=== PATIENT | female | born 1960 | race African-American/Black ===

== ENCOUNTER 2017-09-11 09:59 | Emergency (ER) | payer MEDICARE, MEDICAID ==
[~2017-09-11] VITALS: Ht 160 cm; Wt 77.0 kg
[~2017-09-11 09:59] MED LIST: AMLO10TA80 PO; LEVVL SUBCUT; Meclizine Hcl PO; TOPI200C6 PO
[2017-09-11] MEDS ORDERED: SODIUM CHLORIDE 0.9% 1,000 ML IV ONE (10:26)
[2017-09-11 11:47] LABS: CLARITY URINE CLEAR (CLEAR); COLOR URINE YELLOW (YELLOW); KETONES URINE NEGATIVE (NEGATIVE); LEUKOCYTE ESTERASE URINE NEGATIVE (NEGATIVE); NITRITE URINE NEGATIVE (NEGATIVE); OCCULT BLOOD URINE NEGATIVE (NEGATIVE); PH URINE 5.5 (4.5-8.0); PROTEIN URINE NEGATIVE (NEGATIVE); SPECIFIC GRAVITY URINE 1.015 (1.005-1.030); UROBILINOGEN URINE 0.2 E.U./dL (0.2-1.0)
[2017-09-11 12:08] LABS: *AMPHETAMINES SCREEN URINE NEGATIVE (NEGATIVE); *BARBITURATES SCREEN URINE NEGATIVE (NEGATIVE); *BENZODIAZEPINES SCREEN URINE NEGATIVE (NEGATIVE); *COCAINE SCREEN URINE NEGATIVE (NEGATIVE); METHADONE URINE SCREEN NEGATIVE (NEGATIVE); OPIATES URINE SCREEN NEGATIVE (NEGATIVE)
[2017-09-11 12:09] LABS: CANNABINOID URINE SCREEN NEGATIVE (NEGATIVE); PHENCYCLIDINE URINE SCREEN NEGATIVE (NEGATIVE)
[2017-09-11 14:26] VITALS: BP 109/78
[2017-09-11] MEDS ORDERED: DIPHENHYDRAMINE 25MG CAPSULE PO ONE (14:30)
[2017-09-11 14:58] LABS: BASOPHILS % 1.2 % (0.0-2.0); HEMATOCRIT. 40.5 % (36.0-48.0); HEMOGLOBIN. 13.9 g/dL (12.0-16.0); MEAN CORPUSCULAR HEMOGLOBIN 31.3 pg (28.0-32.0); MEAN CORPUSCULAR VOLUME 91.1 fL (81.0-99.0); MEAN PLATELET VOLUME 9.1 fl (7.4-10.4); MONOCYTES % 12.5 % (2.0-8.0); NEUTROPHILS % 47.3 % (40.0-76.0); PLATELET 181 x1000/uL (130-400); RED BLOOD CELL COUNT 4.44 mill/uL (4.2-5.4); RED CELL DISTRIBUTION WIDTH 13.7 % (11.6-14.6)
[2017-09-11 15:11] LABS: CHLORIDE 112 mEq/L (98-107)
== END 2017-09-11 16:16 | disposition home or self-care (01) ==
LOC: ER 11:26
DX: L30.9 Dermatitis, unspecified (principal); L50.9 Urticaria, unspecified; I10 Essential (primary) hypertension; E11.9 Type 2 diabetes mellitus without complications; E78.00 Pure hypercholesterolemia, unspecified; Z88.5 Allergy status to narcotic agent; Z90.710 Acquired absence of both cervix and uterus; Z85.3 Personal history of malignant neoplasm of breast
CPT/HCPCS: 36415; 80053; 80305; 81003; 85025; 93005; 96360; 99285; J7030; Q0163

== ENCOUNTER 2018-09-12 06:56 | Inpatient (IN) | payer MEDICARE, MEDICAID ==
[~2018-09-12] VITALS: Ht 154.9 cm; Wt 81.8 kg
[2018-09-12 07:35] LABS: CHLORIDE 111 mEq/L (98-107)
[2018-09-12 07:38] LABS: BASOPHILS % 0.6 % (0.0-2.0); EOSINOPHILS % 0.5 % (0.0-5.0); HEMATOCRIT. 40.4 % (36.0-48.0); HEMOGLOBIN. 13.9 g/dL (12.0-16.0); MEAN CORPUSCULAR HEMOGLOBIN 31.1 pg (28.0-32.0); MEAN CORPUSCULAR VOLUME 90.2 fL (81.0-99.0); MEAN PLATELET VOLUME 8.7 fl (7.4-10.4); MONOCYTES % 6.8 % (2.0-8.0); NEUTROPHILS % 66.1 % (40.0-76.0); PLATELET 221 x1000/uL (130-400); RED BLOOD CELL COUNT 4.48 mill/uL (4.2-5.4); RED CELL DISTRIBUTION WIDTH 13.3 % (11.6-14.6)
[2018-09-12] MEDS ORDERED: SODIUM CHLORIDE 0.9% 1,000 ML IV ONE (08:44)
[2018-09-12] MEDS ORDERED: IOHEXOL-350 100 ML BOTTLE ONE (09:13)
[2018-09-12] MEDS ORDERED: METOCLOPRAMIDE HCL 10MG/2ML VIAL IV ONE (10:00)
[2018-09-12] MEDS ORDERED: KETOROLAC 30MG/ML VIAL IV ONE (10:00)
[2018-09-12] MEDS ORDERED: GUAIFENESIN 200MG/10ML SUGAR FREE UDC PO PRN (10:15)
[2018-09-12] MEDS ORDERED: IPRATROPIUM/ALBUTEROL 0.5-3(2.5)MG/3ML NEB INH PRN (10:15)
[2018-09-12] MEDS ORDERED: DOCUSATE SODIUM 100MG CAPSULE PO PRN (10:15)
[2018-09-12] MEDS ORDERED: MAGNESIUM/ALUMINUM HYDROXIDE/SIMETHICONE 30ML UDC PO PRN (10:15)
[2018-09-12] MEDS ORDERED: LORAZEPAM 2MG/ML CPJ IV PRN (10:15)
[2018-09-12] MEDS ORDERED: CLONIDINE 0.1MG TABLET PO PRN (10:15)
[2018-09-12] MEDS ORDERED: NA PHOS,M-B/NA PHOS,DI-BA ENEMA 118ML PR PRN (10:15)
[2018-09-12] MEDS ORDERED: ONDANSETRON HCL 4MG/2ML INJ IV PRN (10:15)
[2018-09-12] MEDS ORDERED: DIPHENHYDRAMINE 50MG/ML VIAL IV PRN (10:15)
[2018-09-12] MEDS ORDERED: ACETAMINOPHEN 325MG TABLET PO PRN (10:15)
[2018-09-12] MEDS ORDERED: ASPIRIN 325MG EC TABLET PO ONE (10:15)
[2018-09-12] MEDS: HYDROCODONE/ACETAMINOPHEN 5/325MG TABLET PO PRN ×2 (15:26→22:39)
[2018-09-12 17:15] VITALS: BP 141/70
[2018-09-12 17:30] VITALS: BP 141/70
[2018-09-12] MEDS: LOSARTAN POTASSIUM 50 MG TABLET PO SCH (18:51)
[2018-09-12] MEDS ORDERED: DEXTROSE 50% WATER 50ML SYRINGE IV PRN (19:45)
[2018-09-12 20:00] VITALS: BP 139/75
[2018-09-12] MEDS: AMLODIPINE 5MG TABLET PO SCH (22:34)
[2018-09-12] MEDS: BLOOD SUGAR DIAGNOSTIC STRIP TEST SCH (22:37)
[2018-09-12] MEDS: INSULIN LISPRO 100 UNITS/ML SUBCUT SCH (22:37)
[2018-09-13] VITALS: BP 138/67
[2018-09-13 04:00] VITALS: BP 146/77
[2018-09-13] MEDS: BLOOD SUGAR DIAGNOSTIC STRIP TEST SCH ×4 (06:44→20:58)
[2018-09-13] MEDS: INSULIN LISPRO 100 UNITS/ML SUBCUT SCH ×4 (06:44→21:04)
[2018-09-13 07:42] LABS: CHLORIDE 114 mEq/L (98-107)
[2018-09-13 07:53] LABS: LDL CHOLESTEROL 118 mg/dL (5-100)
[2018-09-13 07:54] LABS: HDL CHOLESTEROL 55 mg/dL (40-59)
[2018-09-13 07:56] LABS: T4 FREE 1.11 ng/dL (0.76-1.46)
[2018-09-13 08:00] VITALS: BP 127/55
[2018-09-13 08:08] LABS: BASOPHILS % 0.7 % (0.0-2.0); EOSINOPHILS % 1.1 % (0.0-5.0); HEMATOCRIT. 41.3 % (36.0-48.0); LYMPHOCYTES % 44.2 % (20.0-50.0); MEAN CORPUSCULAR HEMOGLOBIN 30.9 pg (28.0-32.0); MEAN CORPUSCULAR VOLUME 91.2 fL (81.0-99.0); MEAN PLATELET VOLUME 9.1 fl (7.4-10.4); MONOCYTES % 7.8 % (2.0-8.0); NEUTROPHILS % 46.2 % (40.0-76.0); PLATELET 205 x1000/uL (130-400); RED BLOOD CELL COUNT 4.53 mill/uL (4.2-5.4); RED CELL DISTRIBUTION WIDTH 13.9 % (11.6-14.6)
[2018-09-13] MEDS ORDERED: [UNRECOGNIZED DRUG - OTHER] PO (08:09)
[2018-09-13] MEDS ORDERED: GABA-531 PO (08:10)
[2018-09-13] MEDS ORDERED: Glyburide (08:10)
[2018-09-13] MEDS ORDERED: REGADENOSON 0.4 MG/5 ML IV ONE ×2 (09:00→10:58)
[2018-09-13] MEDS: ASPIRIN 81MG EC TABLET PO SCH (09:44)
[2018-09-13] MEDS: AMLODIPINE 5MG TABLET PO SCH ×2 (09:44→20:57)
[2018-09-13] MEDS: LOSARTAN POTASSIUM 50 MG TABLET PO SCH (09:44)
[2018-09-13 12:00] VITALS: BP 130/70
[2018-09-13 20:00] VITALS: BP 137/65
[2018-09-13 20:10] LABS: *AMPHETAMINES SCREEN URINE NEGATIVE (NEGATIVE)
[2018-09-13 20:11] LABS: *BARBITURATES SCREEN URINE NEGATIVE (NEGATIVE); *COCAINE SCREEN URINE NEGATIVE (NEGATIVE); CANNABINOID URINE SCREEN NEGATIVE (NEGATIVE); METHADONE URINE SCREEN NEGATIVE (NEGATIVE); OPIATES URINE SCREEN NEGATIVE (NEGATIVE); PHENCYCLIDINE URINE SCREEN NEGATIVE (NEGATIVE)
[2018-09-13 20:12] LABS: *BENZODIAZEPINES SCREEN URINE NEGATIVE (NEGATIVE)
[2018-09-13] MEDS ORDERED: ATORVASTATIN CALCIUM 20MG TABLET PO SCH (21:00)
[2018-09-13] MEDS: GABAPENTIN 300MG CAPSULE PO SCH (21:26)
[2018-09-14] VITALS: BP 140/70
[2018-09-14 04:00] VITALS: BP 142/79
[2018-09-14] MEDS: INSULIN LISPRO 100 UNITS/ML SUBCUT SCH ×2 (05:47→12:13)
[2018-09-14] MEDS: BLOOD SUGAR DIAGNOSTIC STRIP TEST SCH ×2 (05:47→12:13)
[2018-09-14 06:05] LABS: BASOPHILS % 0.5 % (0.0-2.0); EOSINOPHILS % 1.7 % (0.0-5.0); HEMATOCRIT. 42.6 % (36.0-48.0); HEMOGLOBIN. 14.2 g/dL (12.0-16.0); LYMPHOCYTES % 37.3 % (20.0-50.0); MEAN CORPUSCULAR HEMOGLOBIN 30.5 pg (28.0-32.0); MEAN CORPUSCULAR VOLUME 91.5 fL (81.0-99.0); MEAN PLATELET VOLUME 8.7 fl (7.4-10.4); MONOCYTES % 8.2 % (2.0-8.0); NEUTROPHILS % 52.3 % (40.0-76.0); PLATELET 213 x1000/uL (130-400); RED BLOOD CELL COUNT 4.66 mill/uL (4.2-5.4); RED CELL DISTRIBUTION WIDTH 13.8 % (11.6-14.6)
[2018-09-14] MEDS: GABAPENTIN 300MG CAPSULE PO SCH ×2 (06:06→15:03)
[2018-09-14 08:00] VITALS: BP 150/86
[2018-09-14] MEDS: AMLODIPINE 5MG TABLET PO SCH (08:25)
[2018-09-14] MEDS: LOSARTAN POTASSIUM 50 MG TABLET PO SCH (08:25)
[2018-09-14] MEDS: ASPIRIN 81MG EC TABLET PO SCH (08:25)
[2018-09-14 12:00] VITALS: BP 121/71
[2018-09-14 14:51] VITALS: BP 121/71
== END 2018-09-14 15:50 | disposition home health service (06) | DRG 311 ==
LOC: ER 06:56 → 5WST 10:08 → EDBEDREQ 10:13 → ENRESERV 16:03 → 5WST 17:55
PROVIDERS: ADMIT Internal Medicine; ATTEND Internal Medicine
DX: I24.8 Other forms of acute ischemic heart disease (principal); I25.10 Atherosclerotic heart disease of native coronary artery without angina pectoris; I12.9 Hypertensive chronic kidney disease with stage 1 through stage 4 chronic kidney disease, or unspecified chronic kidney disease; N18.9 Chronic kidney disease, unspecified; E78.00 Pure hypercholesterolemia, unspecified; E11.22 Type 2 diabetes mellitus with diabetic chronic kidney disease; E78.5 Hyperlipidemia, unspecified; Z82.49 Family history of ischemic heart disease and other diseases of the circulatory system; Z85.3 Personal history of malignant neoplasm of breast; Z90.10 Acquired absence of unspecified breast and nipple; Z83.3 Family history of diabetes mellitus; Z88.5 Allergy status to narcotic agent
CPT/HCPCS: 36415; 71045; 71275; 78452; 80048; 80061; 80305; 82962; 83036; 83735; 83880; 84439; 84443; 84484; 93005; 93017; 93306; 96374; 96375; 99285; A9500; J1815; J1885; J2765; J2785; J7030; Q9967